=== PATIENT | female | born 1975 | race Caucasian/White ===

== ENCOUNTER 2018-12-17 17:43 | Inpatient (IN) | payer BC ==
[2018-12-17] MEDS ORDERED: NA CHLORIDE 0.9% 1,000 ML ONE (18:36)
[2018-12-17 18:50] LABS: Absolute Lymphocytes (CBC) 1.1 K/uL (0.7-4.9); Absolute Monocytes 1.2 K/uL (0.1-1.3); Absolute Neutrophil 9.2 K/uL (1.8-8.0); Basophils % 0.3 % (0-1.3); Eosinophils % 0.4 % (0-4.4); Hematocrit 34.5 % (36.0-45.0); Lymphocytes % 9.1 % (15.3-44.8); MPV 10.7 fL (7.6-11.3); Monocytes % 10.4 % (3.3-12.3); RBC Red Blood Cell Count 3.82 M/uL (3.86-4.86)
[2018-12-17 18:53] LABS: Urine Bacteria 20-50 /HPF (<20); Urine Culture Reflex Order REFLEXED
[2018-12-17 19:00] LABS: Albumin 2.9 g/dL (3.4-5.0); Bilirubin Direct 0.3 mg/dL (0-0.2); Bilirubin Total 0.6 mg/dL (0.2-1.0); Potassium 3.4 mmol/L (3.5-5.1); Protein, Total 6.9 g/dL (6.4-8.2)
[2018-12-17 19:26] LABS: Blood Morphology Comment NOT SEEN (NOT SEEN); Platelet Estimate ADEQ
--- NOTE | 2018-12-17 19:57 | RAD REPORT ---
EXAM DESCRIPTION: CT - Abdomen Pelvis W Contrast - 12/17/2018 7:28 pm CLINICAL HISTORY: Abdominal pain/ right lower quadrant pain. COMPARISON: none. TECHNIQUE: Computed axial tomography of the abdomen pelvis was obtained. 100 cc Isovue-300 was admin istered intravenously. Oral contrast was not requested which limits evaluation of bowel. All CT scans are performed using dose optimization technique as appropriate and may include automated exposure control or mA/KV adjustment according to patient size. FINDINGS: Large low-density areas are scattered throughout the right kidney having the appearance py elonephritis. Straining within the right perirenal fat. No hydronephrosis Fatty liver Spleen, pancreas, adrenal and left kidney appear unremarkable. There is no evidence of diverticulitis. 18 millimeter left ovarian follicle . Prominent periuterine v eins IMPRESSION: Marked right pyelonephritis
[2018-12-17 20:24] LABS: Urine Blood 2+ (NEG); Urine Glucose NEGATIVE (NEG); Urine Protein 2+ (NEG); Urine Specific Gravity 1.015 (1.005-1.030)
[2018-12-17] MEDS ORDERED: CEFTRIAXONE/SWI 1gm 1 GM/10 ML SYR ONE (20:47)
--- NOTE | 2018-12-17 20:48 | EDPHYS ---
Physician Documentation [facility] Name: Yahaira Mays Age: 43 yrs Sex: Female : 1975 Arrival Date: 12/17/2018 Time: 17:46 Bed 25 Private MD: Amauri Haynes ED Physician Charles Rodrigues HPI: 12/17 19:00 This 43 yrs old Female presents to ER via Ambulatory with complaints of Pain pm1 All Over, Urinary Problem. 19:00 The patient complains of pain in the left low back and right low back. The pain pm1 radiates to the suprapubic area. Onset: The symptoms/episode began/occurred 7 day(s) ago. Modifying factors: The symptoms are alleviated by OTC meds, the symptoms are aggravated by nothing. Associated signs and symptoms: Pertinent positives: fever, nausea, vomiting, Pertinent negatives: diarrhea, dizziness. Severity of pain: in the emergency department the pain is actually worse. The patient has not experienced similar symptoms in the past. The patient has been recently seen at an urgent care, yesterday, for similar complaints, was given a prescription for antibiotics, urine collected. 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 - Social history:: Smoking status: Patient/guardian denies using tobacco. - Ebola Screening: : Patient denies exposure to infectious person Patient denies travel to an Ebola-affected area in the 21 days before illness onset. ROS: 19:00 Eyes: Negative for injury, pain, redness, and discharge, ENT: Negative for injury, pm1 pain, and discharge, Neck: Negative for injury, pain, and swelling, Cardiovascular: Negative for chest pain, palpitations, and edema. 19:00 Respiratory: Negative for shortness of breath, cough, wheezing, and pleuritic chest pain. 19:00 MS/Extremity: Negative for injury and deformity, Skin: Negative for injury, rash, and discoloration, Neuro: Negative for headache, weakness, numbness, tingling, and seizure. 19:00 Constitutional: Positive for body aches, fever. 19:00 Abdomen/GI: Positive for abdominal pain, of the suprapubic area. 19:00 Back: Positive for flank pain, bilaterally. 19:00 : Positive for darkened urine, Negative for urinary frequency, burning with urination. Exam: 19:00 Constitutional: This is a well developed, well nourished patient who is awake, alert, pm1 and in no acute distress. Head/Face: Normocephalic, atraumatic. Eyes: Pupils equal round and reactive to light, extra-ocular motions intact. Lids and lashes normal. Conjunctiva and sclera are non-icteric and not injected. Cornea within normal limits. Periorbital areas with no swelling, redness, or edema. ENT: Nares patent. No nasal discharge, no septal abnormalities noted. Tympanic membranes are normal and external auditory canals are clear. Oropharynx with no redness, swelling, or masses, exudates, or evidence of obstruction, uvula midline. Mucous membranes moist. Neck: Trachea midline, no thyromegaly or masses palpated, and no cervical lymphadenopathy. Supple, full range of motion without nuchal rigidity, or vertebral point tenderness. No Meningismus. Chest/axilla: Normal chest wall appearance and motion. Nontender with no deformity. No lesions are appreciated. Cardiovascular: Regular rate and rhythm with a normal S1 and S2. No gallops, murmurs, or rubs. Normal PMI, no JVD. No pulse deficits. Respiratory: Lungs have equal breath sounds bilaterally, clear to auscultation and percussion. No rales, rhonchi or wheezes noted. No increased work of breathing, no retractions or nasal flaring. Skin: Warm, dry with normal turgor. Normal color with no rashes, no lesions, and no evidence of cellulitis. MS/ Extremity: Pulses equal, no cyanosis. Neurovascular intact. Full, normal range of motion. 19:00 Abdomen/GI: Inspection: abdomen appears normal, Bowel sounds: normal, Palpation: soft, mild abdominal tenderness, in the suprapubic area. 19:00 Back: pain, that is mild, of the right low back. 19:00 Neuro: Orientation: is normal, Motor: is normal, moves all fours, Sensation: is normal, no obvious gross deficits, Gait: is steady, at a normal pace, without difficulty. Vital Signs: 18:02 BP 120 / 77; Pulse 98; Resp 18; Temp 99.1(O); Pulse Ox 100% on R/A; Weight 61.23 kg; ss Height 5 ft. 6 in. (167.64 cm); Pain 3/10; 18:55 BP 118 / 78; Pulse 93; Resp 19; Pulse Ox 100% ; rv 19:50 BP 115 / 76; Pulse 85; Resp 18; Pulse Ox 100% ; rv 22:01 BP 98 / 69; Pulse 88; Resp 18; Pulse Ox 98% ; rv 18:02 Body Mass Index 21.79 (61.23 kg, 167.64 cm) ss MDM: 18:06 Patient medically screened. pm1 20:45 Data reviewed: vital signs. Data interpreted: Pulse oximetry: on room air is 100 %. pm1 Interpretation: normal. Physician consultation: Freida Nieto MD was called at 20:46, was contacted at 20:46, regarding admission, patient's condition, and will see patient in ED, would like medications started, Levaquin. 21:27 Physician consultation: Freida Nieto MD would like a Tylenol level drawn on the pm1 patient. 12/17 18:14 Order name: Urine Dipstick--Ancillary (enter results); Complete Time: 20:27 ss 12/17 18:14 Order name: Urine --Ancillary (enter results); Complete Time: 20:27 ss 12/17 18:18 Order name: Basic Metabolic Panel; Complete Time: 19:06 pm1 12/17 18:18 Order name: CBC with Diff; Complete Time: 19:27 pm1 12/17 18:18 Order name: Creatinine for Radiology; Complete Time: 19:06 pm12/17 18:18 Order name: Hepatic Function; Complete Time: 19:06 pm1 12/17 18:18 Order name: Lipase; Complete Time: 19:06 pm1 12/17 18:18 Order name: Urine Microscopic Only; Complete Time: 19:06 pm12/17 18:18 Order name: Flu; Complete Time: 19:06 pm1 12/17 18:56 Order name: Manual Differential; Complete Time: 19:27 EDMS 12/17 18:56 Order name: Urine Culture EDMS 12/17 19:06 Order name: Camas Screen Profile; Complete Time: 21:26 pm1 12/17 20:47 Order name: Blood Culture EDOR 12/17 21:26 Order name: Tylenol Level; Complete Time: 22:09 pm1 12/17 18:18 Order name: IV Saline Lock; Complete Time: 18:37 pm1 12/17 18:18 Order name: Labs collected and sent; Complete Time: 18:37 pm1 12/17 18:18 Order name: CT Abd/Pelvis - W/Contrast: IV contrast only; Complete Time: 19:59 pm1 Administered Medications: 18:49 Drug: NS 0.9% 1000 ml Route: IV; Rate: 1000 ml; Site: left antecubital; rv 19:51 Follow up: IV Status: Completed infusion; IV Intake: 1000ml rv 20:41 Drug: Rocephin 1 grams Route: IV; Rate: calculated rate; Site: left antecubital; rv 21:05 Follow up: Response: No adverse reaction; IV Status: Completed infusion rv 20:58 Drug: Zofran 4 mg Route: IVP; Site: left antecubital; rv 22:00 Follow up: Response: No adverse reaction rv 21:00 Drug: morphine 4 mg Route: IVP; Site: left antecubital; rv 22:01 Follow up: Response: No adverse reaction; Pain is decreased rv 21:04 Drug: LevaQUIN 500 mg Volume: 100 ml; Route: IVPB; Infused Over: 60 mins; Site: left rv antecubital; 22:01 Follow up: IV Status: Completed infusion; IV Intake: 100ml rv Disposition: 12/17/18 20:47 Hospitalization ordered by Freida Nieto for Inpatient Admission. Preliminary diagnosis is Right sided pyelonephritis . - Bed requested for Telemetry/MedSurg (Inpatient). - Status is Inpatient Admission. rv - Condition is Stable. - Problem is new. - Symptoms have improved. UTI on Admission? Yes Addendum: 12/20/2018 21:18 Co-signature as Attending Physician, Charles Rodrigues MD Available for consultation at p s1 all times. . Signatures: Dispatcher [employer] [facility] [place] Brown RN RN Alma Delia Ugalde RN RN cg Hector Zepeda, MENTAL HEALTH ASSOCIATE MENTAL HEALTH ASSOCIATE pm1 Charles Rodrigues MD MD [facility] Stiven, Paolo, RN RN rv Corrections: (The following items were deleted from the chart) 12/17 21:39 20:47 Hospitalization Ordered by Freida Nieto MD for Inpatient Admission. Preliminary cg diagnosis is Right sided pyelonephritis . Bed requested for Telemetry/MedSurg (Inpatient). Status is Inpatient Admission. Condition is Stable. Problem is new. Symptoms have improved. UTI on Admission? Yes. pm1 22:49 21:39 12/17/2018 20:47 Hospitalization Ordered by Freida Nieto MD for Inpatient rv Admission. Preliminary diagnosis is Right sided pyelonephritis . Bed requested for Telemetry/MedSurg (Inpatient). Status is Inpatient Admission. Condition is Stable. Problem is new. Symptoms have improved. UTI on Admission? Yes. cg
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
[2018-12-17] MEDS ORDERED: MORPHINE 4 MG/ML SYR ONE (21:00)
[2018-12-17] MEDS ORDERED: ONDANSETRON 4 MG/2 ML VIAL ONE (21:01)
[2018-12-17] MEDS ORDERED: Levofloxacin500mg IV 500 MG/100 ML BAG IV ONE (21:01)
--- NOTE | 2018-12-17 21:39 | P.HP ---
Certification for Inpatient Patient admitted to: Inpatient With expected LOS: >2 Midnights Practitioner: I am a practitioner with admitting privileges, knowledge of patient current condition, hospital course, and medical plan of care. Services: Services provided to patient in accordance with Admission requirements found in Title 42 Section 412.3 of the Code of Federal Regulations Patient History Date of Service: 12/17/18 Reason for admission: pyelonephritis History of Present Illness: Ms Mays is a 43 years old woman with pretty benign past medical history, who start about 1 week ago with lower abdominal pain associated with malaise and generalized weakness. She has had burning urination as well. Then, she had fever , chills, and her pain start to radiate to her right flank. She went to Urgent Care clinic in [place] yesterday and was diagnosed with UTI. She was prescribed Augmentin. However, her symptoms today got worse, and she decided to come to ED for further evaluation. Lab work shows lukocytosis 11.6K with 3% Bands. liver enzymes are abnormal as well, she states that has been taking high dose of tylenol alternated with Ibuprofen over the last week. CT abd/pelvis remarkable for right pyelonephritis. Home medications list reviewed: Yes - Past Medical/Surgical History Past Medical History: Reviewed- Non-Contributory -: appendectomy -: -: knee repair -: cyst removal from R foot - Family History Family History: Reviewed- Non-Contributory - Social History Smoking Status: Never smoker Alcohol use: Yes CD- Drugs: No Place of Residence: Home Review of Systems 10-point ROS is otherwise unremarkable Physical Examination - Physical Exam General: Alert, In no apparent distress HEENT: Atraumatic, PERRLA, Mucous membr. moist/pink, EOMI, Sclerae nonicteric Neck: Supple, 2+ carotid pulse no bruit, No LAD, Without JVD or thyroid abnormality Respiratory: Clear to auscultation bilaterally, Normal air movement Cardiovascular: Regular rate/rhythm, Normal S1 S2 Gastrointestinal: Normal bowel sounds, Other (right CVA tender to palpation), Tenderness (lower abdomen) Musculoskeletal: No tenderness Integumentary: No rashes Neurological: Normal speech, Normal strength at 5/5 x4 extr, Normal tone, Normal affect Lymphatics: No axilla or inguinal lymphadenopathy - Studies Laboratory Data (last 24 hrs) 12/17/18 18:31: Creatinine 0.80 12/17/18 18:31: WBC 11.6 H, Hgb 11.6 L, Hct 34.5 L, Plt Count 202 12/17/18 18:31: Sodium 137, Potassium 3.4 L, BUN 11, Creatinine 0.87, Glucose 107 H, Total Bilirubin 0.6, AST 93 H, ALT 96 H, Alkaline Phosphatase 153 H, Lipase 87 Microbiology Data (last 24 hrs): 12/17/18 18:31 Nasopharnyx Influenza Type A Antigen Screen - Final 12/17/18 18:31 Nasopharnyx Influenza Type B Antigen Screen - Final Assessment and Plan - Problems (Diagnosis) (1) Acute pyelonephritis Current Visit: Yes Status: Acute (2) Hypokalemia Current Visit: Yes Status: Acute (3) Abnormal liver enzymes Current Visit: Yes Status: Acute - Plan Will admit the patient to start IV antibiotics. Blood and urine culture in process. Check tylenol levels due to abnormal liver enzymes. The patient is hemodynamically stable. - Advance Directives Does patient have a Living Will: No Does patient have a Durable POA for Healthcare: No - Code Status/Comfort Care Code Status Assessed: Yes Code Status: Full Code
[2018-12-17] MEDS ORDERED: ONDANSETRON 4 MG/2 ML VIAL IV PRN (22:54)
[2018-12-17] MEDS ORDERED: POTASSIUM CL SA 10 MEQ TAB PO ONE (23:25)
[2018-12-17] MEDS: NA CHLORIDE 0.9% 1,000 ML IV SCH (23:36)
[2018-12-17] MEDS: KETOROLAC 30 MG/ML INJ IV PRN (23:37)
[2018-12-18 05:58] LABS: Magnesium 1.9 mg/dL (1.8-2.4); Potassium 3.7 mmol/L (3.5-5.1)
[2018-12-18 06:11] LABS: Absolute Neutrophil 6.7 K/uL (1.8-8.0); Basophils % 0.2 % (0-1.3); Eosinophils % 0.7 % (0-4.4); Lymphocytes % 11.8 % (15.3-44.8); MPV 11.9 fL (7.6-11.3); Monocytes % 11.5 % (3.3-12.3); RBC Red Blood Cell Count 3.43 M/uL (3.86-4.86)
[2018-12-18] MEDS ORDERED: IBUPROFEN 400 MG TAB PO PRN (06:51)
[2018-12-18] MEDS ORDERED: HYDROCODONE/APAP 7.5/325 MG TAB PO PRN (06:51)
[2018-12-18] MEDS: KETOROLAC 30 MG/ML INJ IV PRN ×3 (07:47→21:00)
--- NOTE | 2018-12-18 08:13 | P.PN ---
Subjective Date of Service: 12/18/18 Primary Care Provider: Dr. Haynes Chief Complaint: pyelonephritis Subjective: Improving (Pain under control.) Physical Examination - Vital Signs Temperature: 97.9 F Blood Pressure: 106/54 Pulse: 90 Respirations: 16 Pulse Ox (%): 96 - Physical Exam General: Alert, In no apparent distress, Oriented x3, Cooperative HEENT: Atraumatic Neck: Supple Respiratory: Clear to auscultation bilaterally, Normal air movement Cardiovascular: Normal pulses, Regular rate/rhythm Gastrointestinal: Normal bowel sounds, Soft and benign, Non-distended, No masses , No rebound, No guarding, Tenderness (Minimal pain to the right flank) Musculoskeletal: No erythema, No tenderness, No warmth Integumentary: No tenderness/swelling, No erythema, No warmth, No cyanosis Neurological: Normal speech, Normal strength at 5/5 x4 extr, Normal tone, Normal affect - Studies Laboratory Data (last 24 hrs) 12/17/18 18:31: Creatinine 0.80 12/17/18 18:31: WBC 11.6 H, Hgb 11.6 L, Hct 34.5 L, Plt Count 202 12/17/18 18:31: Sodium 137, Potassium 3.4 L, BUN 11, Creatinine 0.87, Glucose 107 H, Total Bilirubin 0.6, AST 93 H, ALT 96 H, Alkaline Phosphatase 153 H, Lipase 87 Microbiology Data (last 24 hrs): 12/17/18 18:31 Nasopharnyx Influenza Type A Antigen Screen - Final 12/17/18 18:31 Nasopharnyx Influenza Type B Antigen Screen - Final Medications List Reviewed: Yes Assessment & Plan Discharge Plan: Home Plan to discharge in: 24 Hours Physician Review Additional Text: Impression: Right pyelonephritis with failed outpatient therapy and history of recurrent UTI Hypokalemia with dehydration Elevated liver function with noted fatty liver Anemia likely iron deficiency Depression Adult ADD Plan: Right pyelonephritis with failed outpatient therapy and history of recurrent UTI : Continue IV antibiotic therapy. Continue IV fluids. Await urine culture results. Anticipate discharge in the next 24 hr awaiting culture results. Will recommend urology evaluation as an outpatient. Hypokalemia with dehydration: Continue to monitor and replace electrolytes. Continue IV fluids. Encourage oral intake. Elevated liver function with noted fatty liver: CT scan revealed fatty liver. Will provide education. Will send lab for hepatitis panel. Anemia likely iron deficiency: Suspect iron deficiency anemia. Will check iron and B12 studies along with thyroid level. Depression: Restart home med. Adult ADD: Hold medication at this time. Time Spent Managing Pts Care (In Minutes): 55
[2018-12-18] MEDS: FAMOTIDINE 20 MG TAB PO SCH ×2 (08:19→21:10)
[2018-12-18] MEDS: ENOXAPARIN 40 MG/0.4 ML SQ SCH (08:19)
[2018-12-18] MEDS: NA CHLORIDE 0.9% 1,000 ML IV SCH ×2 (08:21→18:23)
[2018-12-18] MEDS: SERTRALINE HCL 50 MG TAB PO SCH (09:00)
[2018-12-18] MEDS ORDERED: POTASSIUM CL SA 10 MEQ TAB PO ONE (09:00)
[2018-12-18 09:03] LABS: Ferritin 269.8 ng/mL (8-388); Thyroid Stimulating Hormone 0.379 uIU/mL (0.360-3.740)
[2018-12-18] MEDS: TRAMADOL HCL 50 MG TAB PO PRN (10:20)
[2018-12-18] MEDS ORDERED: Levofloxacin 750mg IV 750 MG/150 ML BAG IV SCH (21:00)
[2018-12-19] MEDS: TRAMADOL HCL 50 MG TAB PO PRN (02:28)
[2018-12-19 05:58] LABS: Absolute Lymphocytes (CBC) 1.2 K/uL (0.7-4.9); Absolute Monocytes 0.8 K/uL (0.1-1.3); Absolute Neutrophil 4.9 K/uL (1.8-8.0); Basophils % 0.3 % (0-1.3); Lymphocytes % 17.5 % (15.3-44.8); MPV 10.9 fL (7.6-11.3); Monocytes % 11.6 % (3.3-12.3); RBC Red Blood Cell Count 3.34 M/uL (3.86-4.86)
[2018-12-19 06:05] LABS: ALT/SGPT 151 U/L (12-78); AST/SGOT 156 U/L (15-37); Albumin 2.3 g/dL (3.4-5.0); Alkaline Phosphatase 187 U/L (45-117); BUN Blood Urea Nitrogen 5 mg/dL (7-18); Bicarbonate 25 mmol/L (21-32); Bilirubin Total 0.6 mg/dL (0.2-1.0); Glucose Level 93 mg/dL (74-106); Magnesium 1.9 mg/dL (1.8-2.4); Potassium 3.9 mmol/L (3.5-5.1); Protein, Total 5.8 g/dL (6.4-8.2); Sodium Level 138 mmol/L (136-145)
[2018-12-19] MEDS: NA CHLORIDE 0.9% 1,000 ML IV SCH (07:03)
[2018-12-19] MEDS ORDERED: LACTULOSE 20 GM/30 ML UCUP PO PRN (07:22)
[2018-12-19] MEDS ORDERED: NA CHLORIDE 0.9% 1,000 ML IV SCH (08:00)
[2018-12-19] MEDS ORDERED: POTASSIUM 25 MEQ EFFERV TAB PO ONE (09:00)
[2018-12-19] MEDS ORDERED: DOCUSATE NA 100 MG CAP PO SCH (09:00)
[2018-12-19] MEDS: SERTRALINE HCL 50 MG TAB PO SCH (09:00)
[2018-12-19] MEDS: ENOXAPARIN 40 MG/0.4 ML SQ SCH (09:09)
[2018-12-19] MEDS: FAMOTIDINE 20 MG TAB PO SCH (09:10)
--- NOTE | 2018-12-19 09:31 | RAD REPORT ---
EXAM DESCRIPTION: US - Abdomen Exam Complete - 12/19/2018 8:50 am CLINICAL HISTORY: Abdominal pain. Pyelonephritis, elevated LFTs w Fatty liver COMPARISON: Abdomen Pelvis W Contrast dated 12/17/2018 FINDINGS: The liver is normal in size, shape and echotexture. No focal liver lesions or intrahepatic biliary dilatation is seen. The gallbladder demonstrates no gallstones, pericholecystic fluid or gallbladder wall thickening. Co mmon bile duct is normal in caliber measuring 4 millimeters. Both kidneys are normal in size, shape and echotexture. No hydronephrosis, focal lesion of concern or perinephric fluid. The spleen is normal in size measuring 11 centimeters. The pancreas and aorta are obscured by bowel gas. The visualized aspects of the IVC are grossly normal. IMPRESSION: Unremarkable study except for limited assessment of the pancreas and aorta due to bowel gas.
--- NOTE | 2018-12-19 13:26 | P.DS ---
Admission Date: 12/17/18 Discharge Date: 12/19/18 Primary Care Provider: Dr. Haynes Disposition: ROUTINE DISCHARGE Discharge Condition: GOOD Reason for Admission: pyelonephritis Consultations: none Procedures: CT scan: FINDINGS: Large low-density areas are scattered throughout the right kidney having the appearance pyelonephritis. Straining within the right perirenal fat. No hydronephrosis Fatty liver Spleen, pancreas, adrenal and left kidney appear unremarkable. There is no evidence of diverticulitis. 18 millimeter left ovarian follicle . Prominent periuterine veins IMPRESSION: Marked right pyelonephritis ABUS: FINDINGS: The liver is normal in size, shape and echotexture. No focal liver lesions or intrahepatic biliary dilatation is seen. The gallbladder demonstrates no gallstones, pericholecystic fluid or gallbladder wall thickening. Common bile duct is normal in caliber measuring 4 millimeters. Both kidneys are normal in size, shape and echotexture. No hydronephrosis, focal lesion of concern or perinephric fluid. The spleen is normal in size measuring 11 centimeters. The pancreas and aorta are obscured by bowel gas. The visualized aspects of the IVC are grossly normal. IMPRESSION: Unremarkable study except for limited assessment of the pancreas and aorta due to bowel gas. Medical Problem List: Right pyelonephritis with failed outpatient therapy and history of recurrent UTI , urine culture positive for E coli Hypokalemia with dehydration Elevated liver function with noted fatty liver Anemia likely iron deficiency Depression Adult ADD Brief History of Present Illness: 43-year-old female presented to the emergency room with failed outpatient UTI. Patient found to have right pyelonephritis. Patient was admitted for treatment. Hospital Course: Patient presented with right pyelonephritis with failed outpatient therapy. Patient recently seen at urgent care in [place]. Patient continue with symptoms. CT scan revealed right pyelonephritis. Patient with history of recurrent UTI. During the course of this day patient improved. At discharge patient will continue with Levaquin 500 mg daily for 5 more days. UTI prevention will be enforced. Recommend to follow up with urology as an outpatient to further monitor and address due to her history of recurrent UTI. Prior to discharge efforts to obtain urine culture results from urgent care at [place] was done. Urine culture positive for E coli with multiple sensitivities. Patient will continue with current antibiotic and above recommendation. Patient had mild dehydration. This resolved with IV fluids. Patient with elevated liver function. CT scan revealed fatty liver. Recommend to recheck LFTs in 1-2 weeks to monitor resolution. Will provide education. Patient made need to follow up with GI to further evaluate. Patient with iron deficiency anemia. Will recommend to continue with iron daily. Recommend to recheck CBC in 1-2 months to monitor her progress. Patient with depression and adult ADD. Patient may continue with her medication. Vital Signs/Physical Exam: Temp Pulse Resp BP Pulse Ox 98.3 F 90 18 106/66 98 12/19/18 12:00 12/19/18 12:00 12/19/18 12:00 12/19/18 12:00 12/19/18 12:00 General: Alert, In no apparent distress, Oriented x3, Cooperative HEENT: Atraumatic Neck: Supple Respiratory: Clear to auscultation bilaterally, Normal air movement Cardiovascular: Normal pulses, Regular rate/rhythm Gastrointestinal: Normal bowel sounds, Soft and benign, Non-distended, No tenderness, No masses, No rebound, No guarding Musculoskeletal: No erythema, No tenderness, No warmth Integumentary: No tenderness/swelling, No erythema, No warmth, No cyanosis Neurological: Normal speech, Normal strength at 5/5 x4 extr, Normal tone, Normal affect Laboratory Data at Discharge: WBC 7.0 K/uL (4.3-10.9) D 12/19/18 05:22 Hgb 10.5 g/dL (12.0-15.0) L 12/19/18 05:22 Hct 30.0 % (36.0-45.0) L 12/19/18 05:22 Plt Count 218 K/uL (152-406) D 12/19/18 05:22 Sodium 138 mmol/L (136-145) 12/19/18 05:22 Potassium 3.9 mmol/L (3.5-5.1) 12/19/18 05:22 BUN 5 mg/dL (7-18) L 12/19/18 05:22 Creatinine 0.60 mg/dL (0.55-1.3) 12/19/18 05:22 Glucose 93 mg/dL (74-106) 12/19/18 05:22 Magnesium 1.9 mg/dL (1.8-2.4) 12/19/18 05:22 Total Bilirubin 0.6 mg/dL (0.2-1.0) 12/19/18 05:22 AST 156 U/L (15-37) H 12/19/18 05:22 ALT 151 U/L (12-78) H 12/19/18 05:22 Alkaline Phosphatase 187 U/L (45-117) H 12/19/18 05:22 Lipase 87 U/L (73-393) 12/17/18 18:31 Home Medications: Famotidine [Pepcid] 40 mg PO BID 12/17/18 Lisdexamfetamine Dimesylate [Vyvanse] 40 mg PO DAILY 12/17/18 Sertraline [Zoloft*] 10 mg PO BEDTIME 12/17/18 Ferrous Sulfate [Iron] 325 mg PO DAILY #30 tablet 12/19/18 levoFLOXacin [Levaquin] 500 mg PO DAILY #5 tab 12/19/18 traMADol HCL [Ultram*] 50 mg PO TID PRN #10 tab 12/19/18 New Medications: Ferrous Sulfate [Iron] 325 mg PO DAILY #30 tablet levoFLOXacin [Levaquin] 500 mg PO DAILY #5 tab traMADol HCL [Ultram*] 50 mg PO TID PRN #10 tab PRN Reason: Pain Patient Discharge Instructions: 1. Recommend to follow up with her PCP in 1 week to follow up this hospitalization. 2. Patient presented with right pyelonephritis with failed outpatient therapy. Patient recently seen at urgent care in [place]. Patient continue with symptoms. CT scan revealed right pyelonephritis. Patient with history of recurrent UTI. During the course of this day patient improved. At discharge patient will continue with Levaquin 500 mg daily for 5 more days. UTI prevention will be enforced. Recommend to follow up with urology as an outpatient to further monitor and address due to her history of recurrent UTI. Prior to discharge effort was made to obtain urine culture taken at urgent care in [place]. Urine culture positive for E coli with multiple sensitivities. Patient with above recommendation and antibiotics.. 3. Patient had mild dehydration. This resolved with IV fluids. 4. Patient with elevated liver function. CT scan revealed fatty liver. Recommend to recheck LFTs in 1-2 weeks to monitor resolution. Will provide education. Patient made need to follow up with GI to further evaluate. 5. Patient with iron deficiency anemia. Will recommend to continue with iron daily. Recommend to recheck CBC in 1-2 months to monitor her progress. 6. Patient with depression and adult ADD. Patient may continue with her medication. Diet: AHA Activity: Ad martha Time spent managing pt's care (in minutes): 55
[2018-12-21 19:19] LABS: HBsAG Nonreactive (Nonreactive); Hepatitis A IgM Antibody Nonreactive
== END 2018-12-19 16:01 | disposition home or self-care (01) | DRG 690 ==
LOC: ER 17:43 → ERHOLD 21:26 → 2ND 22:37
PROVIDERS: ADMIT Internal Medicine; ATTEND Family Medicine
DX: N10 Acute pyelonephritis (principal); E87.6 Hypokalemia; E86.0 Dehydration; B96.20 Unspecified Escherichia coli [E. coli] as the cause of diseases classified elsewhere; K76.0 Fatty (change of) liver, not elsewhere classified; D50.9 Iron deficiency anemia, unspecified; F32.9 Major depressive disorder, single episode, unspecified; F98.8 Other specified behavioral and emotional disorders with onset usually occurring in childhood and adolescence; Z87.440 Personal history of urinary (tract) infections
CPT/HCPCS: 36415; 74177; 76700; 80048; 80053; 80074; 80076; 80329; 81003; 81015; 81025; 82607; 82728; 83540; 83690; 83735; 84145; 84439; 84443; 84466; 85025; 86308; 87040; 87086; 87088; 87804; 96361; 96365; 96375; 99284; J0696; J1650; J2405; J7030; Q9967